=== PATIENT | male | born 1965 | race Caucasian/White ===

== ENCOUNTER 2017-03-02 13:25 | Day surgery (SDC) | payer OTHER ==
[~2017-03-02] VITALS: Ht 188 cm; Wt 86.2 kg
[~2017-03-02 13:25] MED LIST: 0.9% Sodium Chloride 1,000 ML IV SCH; ASCO-294 PO; Sodium Chloride LOK Flush 10 mL Syringe IV PRN; fentaNYL-PF 50 mCg/mL 2 mL Inj IVPUSH PRN
[2017-03-02 14:25] VITALS: BP 140/91; PULSE 60; RESP 14; O2SAT 98
[2017-03-02] MEDS ORDERED: COD473OI PO (14:28)
[2017-03-02 15:45] VITALS: BP 110/65; PULSE 61; RESP 16; O2SAT 100
[2017-03-02 15:55] VITALS: BP 110/65; PULSE 63; RESP 16; O2SAT 100
--- NOTE | 2017-03-02 16:09 | ENDO ---
[address] [address] ENDOSCOPY PROCEDURE PATIENT: FRANCO MCKINNON : 1965 MR#: [id number] ADMIT: 03/02/2017 JOB ID: [id number] DATE: 03/02/2017 PROCEDURE: Colonoscopy. INDICATION: Screening. Patient's ASA classification is I. Mallampati score was I. MEDICATIONS: Versed at 4 mg, fentanyl 75 mcg. INSTRUMENT USED: PCF-H180AL. Prep quality was good. PROCEDURE DETAILS: After informed consent was obtained, the patient was brought to the GI suite, where he was placed on oxygen via nasal cannula and monitored with continuous pulse oximeter, telemetry, and blood pressure monitoring. A time-out was performed. Then, he was placed in a left lateral decubitus position and medications were administered for sedation. Digital rectal exam was performed, which was unremarkable. The colonoscope was then inserted into the rectum and advanced under direct visualization to the cecum, which was identified by the presence of the ileocecal valve and appendiceal orifice. Once the cecum was reached, the colonoscope was withdrawn back into the rectum as the mucosa and lumen were examined. In the rectum, retroflexion was performed. Following retroflexion, remaining air in the rectum was suctioned, and procedure was completed. FINDINGS: Normal exam from rectum to cecum. IMPRESSION: Normal colonoscopy. RECOMMENDATIONS: Repeat colonoscopy in 10 years, sooner if symptoms should dictate. COMPLICATIONS: None. ESTIMATED BLOOD LOSS: Zero.
== END 2017-03-02 23:59 | disposition home or self-care (01) ==
LOC: END 13:25
PROVIDERS: ATTEND Internal Medicine Gastroenterology
DX: Z12.11 Encounter for screening for malignant neoplasm of colon (principal); G47.00 Insomnia, unspecified; G47.30 Sleep apnea, unspecified
CPT/HCPCS: G0121; G0500; J2250; J3010; J7030